=== PATIENT | male | born 1960 | race Caucasian/White ===

== ENCOUNTER 2018-12-09 19:09 | Emergency (ER) | payer OTHER ==
[2018-12-09 19:19] VITALS: BP 139/89
[2018-12-09] MEDS ORDERED: TETANUS/DIPHTHERIA/PERTUSSIS 0.5 ML SYRINGE IM ONE (19:32)
[2018-12-09] MEDS ORDERED: LIDOCAINE 1%-EPI 1:100000 30 ML MDV SUBQ STA (19:32)
--- NOTE | 2018-12-09 19:33 | ED Physician Documentation ---
PD HPI UPPER EXT INJURY - Stated complaint Stated Complaint: RT ARM LAC - Chief complaint Chief Complaint: Laceration - History obtained from History obtained from: Patient - History of Present Illness Location: Right (Right-handed gentleman who is not up-to-date on tetanus just bought a 1967, [employer]. He had an oil leak and he was looking under the [place] with the engine running and the fan blade sucked his coat in and he has 2 lacerations on the right forearm.) Review of Systems Constitutional: reports: Reviewed and negative Throat: reports: Reviewed and negative Cardiac: reports: Reviewed and negative Respiratory: reports: Reviewed and negative PD PAST MEDICAL HISTORY - Allergies Allergies/Adverse Reactions: Allergies Allergy/AdvReac Type Severity Reaction Status Date / Time No Known Drug Allergies Allergy Verified 12/09/18 19:18 PD ED PE NORMAL - Vitals Vital signs reviewed: Yes - General General: Alert and oriented X 3, No acute distress - Extremities Extremities: Other (On the medial distal Right forearm he has 2 parallel lacerations, the one more dorsally is pretty shallow but does merit suturing, the one more laterally is much deeper. He has intact flexion extension at the wrist and all of his fingers, normal sensation throughout the hand and normal interosseous strength.) - Neuro Neuro: Alert and oriented X 3, Normal speech Results - Vitals Vitals: Vital Signs - 24 hr 12/09/18 19:15 Temperature 36.0 C L Heart Rate 86 Respiratory 18 Rate Blood Pressure 139/89 H O2 Saturation 96 Oxygen O2 Source Room air Procedures - Laceration (location) R forearm Length in cm: 10 Wound type: Other (2 parallel lacerations measuring 5 cm each) Neurovascular status: Sensory intact, Motor intact, Vascular intact Anesthesia: Lidocaine 1% with epi Wound Preparation: Hibiclens, Irrigated copiously NS Skin layer closure: Nylon, Running, Size #-0 - enter number (3-0) Other: Patient tolerated well, No complications, Neurovascular intact, Tetanus booster given Complexity: Simple Departure - Departure Disposition: 01 Home, Self Care Clinical Impression: Laceration Condition: Good Record reviewed to determine appropriate education?: Yes Instructions: ED Laceration All Comments: Come back for any signs of infection which would include: Redness, swelling, drainage, increased pain, or fevers. Follow-up with your physician in 14 days for suture removal.
== END 2018-12-09 20:20 | disposition home or self-care (01) ==
LOC: ED 19:09
DX: S51.811A Laceration without foreign body of right forearm, initial encounter (principal); W23.0XXA Caught, crushed, jammed, or pinched between moving objects, initial encounter; Y93.89 Activity, other specified; Z23 Encounter for immunization
CPT/HCPCS: 12004; 90471; 99282; 99283